=== PATIENT | female | born 1990 | race Caucasian/White ===

== ENCOUNTER → 2019-01-19 | Outpatient (CLI) | payer OTHER ==
--- NOTE | 2019-01-20 08:59 | REP ---
THYROID ULTRASOUND: 01/19/2019. Comparison: 04/30/2016. Clinical history: Nontoxic multinodular goiter. Findings: Bilateral thyroid lobes are heterogeneous. Right lobe is five open 72.3 cm. Left lobe is 4.5 x 1.6 x 1.8 cm. On the previous exam. The right lobe is 5.3 cm. The left lobe 4.3 cm in length. There is a near isoechoic solid nodule right lobe 1 x 0.5 x 0.6 cm. This is in the mid thyroid region medially. Largest nodule left lobe is 1 x 0.7 x 0.5 cm. Other nodules ranging from 7 x 4 mm to 7 x 6 mm in the left lobe. A second measurable nodule in the right lobe is 1 x 0.8 x 0.7 cm. Impression: 1. Multinodular goiter overall thyroid size similar scattered solid nodules noted throughout. No significant interval change. Electronically Signed by Glen Thorne MD 01/20/2019 07:43 P
== END ==
LOC: M RAD 17:35
PROVIDERS: ATTEND Family Medicine
DX: E04.2 Nontoxic multinodular goiter (principal)

== ENCOUNTER → 2019-09-11 | Outpatient (CLI) | payer OTHER | LOC: M LAB 12:55 | PROVIDERS: ATTEND Family Medicine | DX: E03.9 Hypothyroidism, unspecified (principal) ==

== ENCOUNTER → 2019-09-22 | Outpatient (CLI) | payer OTHER, SELFPAY ==
[2019-09-22 16:04] LABS: FOLLICLE STIMULATING HORMONE 4.6 mIU/mL; PROGESTERONE 3.9 NG/ML; PROLACTIN 7.5 NG/ML
== END ==
LOC: M LAB 12:27
PROVIDERS: ATTEND Nurse Practitioner
DX: N94.10 Unspecified dyspareunia (principal)

== ENCOUNTER → 2019-09-27 | Outpatient (CLI) | payer OTHER ==
--- NOTE | 2019-09-28 08:12 | REP ---
PELVIC SONOGRAPHY: HISTORY: Persistent dysmenorrhea and dyspareunia. FINDINGS: Transabdominal and transvaginal scanning are performed. Visualized bladder pinto are smooth. Uterine dimensions are normal at 7.0 x 3.5 x 4.1 cm. Endometrial echo is 0.9 cm thick and centrally placed. There is a trace of fluid in the cul-de-sac. There is a 2.5 cm cyst in the right ovary consistent with a follicle cyst. The right ovary dimensions are 3.2 x 2.9 x 4.0 inclusive of this. Left ovary measures 4.9 x 4.9 x 5.7 cm. There is a cystic area in the left ovary measuring point 0.9 x 3.2 x 5.1 cm IMPRESSION: 5.1 cm left ovarian simple cyst. Otherwise negative pelvic sonography. Electronically Signed by Connor Scott MD 09/28/2019 08:35 A
== END ==
LOC: M RAD 16:30
PROVIDERS: ATTEND Nurse Practitioner
DX: N94.6 Dysmenorrhea, unspecified (principal); N83.202 Unspecified ovarian cyst, left side

== ENCOUNTER → 2022-07-23 | Outpatient (CLI) | payer BC, MEDICAID, SELFPAY | LOC: M RAD 08:23 | PROVIDERS: ATTEND Family Medicine | DX: E04.2 Nontoxic multinodular goiter (principal); E03.9 Hypothyroidism, unspecified ==

== ENCOUNTER → 2023-12-16 | Outpatient (CLI) | payer OTHER | LOC: M WHC 12:05 | PROVIDERS: ATTEND Obstetrics & Gynecology Obstetrics | DX: Z34.02 Encounter for supervision of normal first pregnancy, second trimester (principal); Z36.89 Encounter for other specified antenatal screening; Z3A.21 21 weeks gestation of pregnancy ==

== ENCOUNTER → 2024-01-13 | Outpatient (CLI) | payer OTHER ==
[2024-01-13 11:06] LABS: HEMOGLOBIN 10.8 g/dl (12.0-15.5); MEAN CORPUSCULAR HEMOGLOBIN 28.6 pg (27.0-33.0); MEAN CORPUSCULAR HGB CONC 32.7 g/dl (32.0-36.5); MEAN CORPUSCULAR VOLUME 87.3 fl (80.0-96.0); PLATELET COUNT, AUTOMATED 251 10^3/uL (150-450); RED BLOOD COUNT 3.78 10^6/uL (4.00-5.40); WHITE BLOOD COUNT 9.1 10^3/uL (4.0-10.0)
[2024-01-13 11:20] LABS: FREE T4 0.96 NG/DL (0.89-1.76); THYROID STIMULATING HORMONE 2.063 uIU/ML (0.55-4.78)
== END ==
LOC: M PLALAB 07:13
PROVIDERS: ATTEND Obstetrics & Gynecology
DX: Z34.02 Encounter for supervision of normal first pregnancy, second trimester (principal)

== ENCOUNTER → 2024-01-13 | Outpatient (CLI) | payer OTHER | LOC: M WHC 07:09 | PROVIDERS: ATTEND Obstetrics & Gynecology | DX: Z34.02 Encounter for supervision of normal first pregnancy, second trimester (principal); Z3A.25 25 weeks gestation of pregnancy ==

== ENCOUNTER → 2024-03-30 | Outpatient (CLI) | payer OTHER | LOC: M RAD 12:34 | PROVIDERS: ATTEND Obstetrics & Gynecology Obstetrics | DX: Z34.03 Encounter for supervision of normal first pregnancy, third trimester (principal); Z3A.36 36 weeks gestation of pregnancy ==

== ENCOUNTER → 2024-04-11 | Outpatient (CLI) | payer OTHER | LOC: M RAD 12:37 | PROVIDERS: ATTEND Obstetrics & Gynecology Obstetrics | DX: O26.843 Uterine size-date discrepancy, third trimester (principal); Z3A.37 37 weeks gestation of pregnancy ==

== ENCOUNTER → 2025-02-13 | Outpatient (CLI) | payer OTHER | LOC: M RAD 14:51 | PROVIDERS: ATTEND Obstetrics & Gynecology Obstetrics | DX: Z30.431 Encounter for routine checking of intrauterine contraceptive device (principal) ==